=== PATIENT | female | born 1960 | race Caucasian/White ===

== ENCOUNTER 2023-12-03 13:27 | Outpatient (CLI) | payer BC, SELFPAY ==
--- NOTE | 2023-12-03 13:40 | MM_ITS ---
Patient: SARAH RUSH Facility:?[facility] [place] Patient ID:?[id number] Site Patient ID:?[id number]. Site :?[id number] Study:?XRay-Breast Bilateral 3D W/CAD-12/03/2023 2:00:26 PM Ordering Physician:Candice Linares Final Report: BILATERAL SCREENING MAMMOGRAM WITH COMPUTER-AIDED DETECTION AND TOMOSYNTHESIS TECHNIQUE: CC and MLO views were obtained. These mammographic images have been obtained using full-field digital technique. These mammographic images were interpreted with the benefit of computer-aided detection. Breast Tomosynthesis was used in this interpretation. COMPARISON FILM: 08/29/21, 03/28/20, 05/13/17. FINDINGS: There are scattered areas of fibroglandular density IMPRESSION: There is no radiographic evidence for malignancy. ASSESSMENT: BI-RADS Category 1: Negative RECOMMENDATION: Routine screening mammogram in 1 year. A lay language report of this examination will be provided to the patient. Noel Alvarado M.D. Diagnostic Radiologist [email or web address] Transcribed: 12:48 p.mAkua erickson/Dictated by: Noel Alvarado MD @ 12/04/2023 9:56:00 AM Signed by:?Noel Alvarado MD @12/04/2023 12:48:30 PM (Electronic Signature)
== END 2023-12-03 13:28 | disposition home or self-care (01) ==
LOC: MAMMO 13:32
PROVIDERS: PCP Family Medicine; Visit Provider Family Medicine
DX: Z12.31 Encounter for screening mammogram for malignant neoplasm of breast (principal)
CPT/HCPCS: 77063; 77067

== ENCOUNTER 2025-02-02 09:02 | Outpatient (CLI) | payer MEDICARE, BC, SELFPAY ==
--- NOTE | 2025-02-02 09:15 | CRLHL7_ITS ---
For Patients: As a result of the Century Cures Act, medical imaging exams and procedure reports are released immediately into your electronic medical record. You may view this report before your referring provider. If you have questions, please contact your health care provider. INDICATION: BILATERAL SCREENING MAMMOGRAM, ASYMPTOMATC 64 Y/O FEMALE COMPARISON: 12/03/2023, 08/29/2021, 03/28/2020 TECHNIQUE: Digital mammogram in CC and MLO projections including computer-aided detection (CAD) and tomosynthesis. BREAST COMPOSITION: There are scattered areas of fibroglandular density. FINDINGS: No suspicious findings. ASSESSMENT: BI-RADS 1 Negative RECOMMENDATION: Annual screening mammogram. A lay language report of this examination will be provided to the patient. Dictated by: Noel Alvarado MD @ 02/02/2025 10:01:31 (Electronically Signed)
--- OUTSIDE RECORDS SUMMARY | 2025-02-03 00:38 | XMS_ITS | Clinical Summary ---
Author Organization [facility] Address [address] [place] [id number] Care Team Providers Care Schedule Supervisor Name Role Phone Candice Mendez MD Primary Care Provide r Allergies Active Allergy Reactions Criticality Noted Date Comments Sulfamethoxazole-Trimethoprim Rash 2012 Penicillins 01/19/2008 When she was little Medications rosuvastatin (CRESTOR) 5 mg tabletIndications:H yperlipidemia, unspecified hyperlipidemia type Take 1 Tablet (5 mg) by mouth at bedtime. 90 Tablet 3 4 Active acyclovir (ZOVIRAX) 400 mg tabletIndications:H /O cold sores Take 1 Tablet (400 mg) by mouth three times daily. For 5 days. Take at cold sore onset. 45 Tablet 3 4 Active Active Problems Problem Noted Date Diagnosed Date Routine adult health maintenance 07/01/2017 Overview (07/01/2017): Colonoscopy 06/2017 diverticulosis repeat in 10 years H/O cold sores 06/16/2014 Hyperlipidemia 04/10/2011 Mild recurrent major depression 04/10/2011 Tobacco use disorder 04/10/2011 Immunizations Immunization Administration Dates Next Due DT (Age < 7 years) 12/16/2007 Hepatitis A (Adult) 06/16/2014,12/29/2012 Influenza RIV4 (Age 18+ Year s) PRESERV FREE 05/18/2019 Influenza Virus, Unspecified 08/16/2015(Deferred : Patient Refused) Influenza, IIV3 (Age 6-35 mos) 3,05/19/2012,06/03/2011,2009 Influenza, IIV3 (Age >=3 years) 06/14/2014 Influenza, IIV4 06/03/2017,06/04/2016 Influenza, Intradermal, Quad rivalent, Pf 06/03/2017 TD, UNSPECIFIED 11/20/2021 Tdap 05/19/2012 Typhoid (injectable) 12/29/2012 Yellow Fever 12/29/2012 Family History Medical History Relation Name Comments Cancer-prostate Father Hypertension Maternal Grandmother Cancer-breast Mother Hyperlipidemia Mother Hypertension Mother Cancer Paternal Grandfather lymphom a Hypertension Paternal Grandmother Macular degeneration Sister Relation Name Status Comments Father Maternal Grandmother Mother Paternal Grandfather Paternal Grandmother Sister Social History Tobacco Use Types Packs/Day Years Used Date Smoking Tobacco: Former Cigarettes Q uit: 12/03/2015 Smokeless Tobacco: Never Tobacco Cessation:Counseling Given: Yes Alcohol Use Standard Drinks/Week Comments Yes 2 (1 standard drink = 0.6 oz pur e alcohol) 2 per month PHQ-2 Answer Date Recorded PHQ-2 TOTAL SCORE 0 06/13/2022 Social Connections Answer Date Recorded Frequency of Communication with Friends and Fami ly Not on file 08/17/2021 Financial Resource Strain Answer Date R ecorded Difficulty of Paying Living Expenses Not on file 08/17/2021 Difficulty of Paying Living Expenses Not on file 08/17/2021 Comments No Sex and Gender Information Value Date Recorded Sex Assigned at Not on file Legal Sex Female 5:26 AM GLUE MIXER Gender Identity Not on file Sexual Orientation Not on file Obstetrics History Last Filed Vital Signs Vital Sign Reading Time Taken Comments Blood Pressure 124/82 06/13/2022 9:39 AM CDT Pulse 85 06/13/2022 9:39 AM CDT Temperature 36.6 C (97.9 F) 07/23/2020 4:53 PM GLUE MIXER Respiratory Rate - - Oxygen Saturation 96% 06/13/2022 9:39 AM CDT Inhaled Oxygen Concentration - - Weight 68.5 kg (151 lb) 06/13/2022 9:39 AM CDT Height 164.5 cm (5' 4.75) 06/13/2022 9:39 AM CD T Body Mass Index 25.32 06/13/2022 9:39 AM CDT Plan of Treatment Upcoming Encounters Date Type Department Care Team (Late st Contact Info) Description 02/07/2025 8:25 AM CDT [facility] [address] [place] [address] Candice Mendez MD [address] [place] [address] Health Maintenance Due Date Last Done Comments HIV for age 15-65 1974 Pneumococcal series for age 50+ (1 of 1 - PCV) 2009 Zoster (shingles) series for age 50+ (1 of 2) 2009 BMI (ht and wt on same day) for age 18+ 06/13/2023 06/13/2022, 08/19/2019, 06/27/2019, Additional history exists Depression screening for age 12+ 06/13/2023 06/13/2022, 07/23/2020, 08/19/2019, Additional history exists COVID-19 vaccine series ( season) 2024 07/16/2021, 10/27/2020, 10/06/2020 DEXA/DXA scan for age 65+ 2024 Mammogram for age 45-75 12/02/2024 12/03/19 24, 08/29/2021, 03/28/2020, Additional history exists Influenza Vaccine (Season Ended) 2025 05/18/2019, 06/03/2017, 06/03/2017, Additional history exists Lipids for age 45-75 06/13/2027 06/13/2022, 06/01/2018, 06/03/2017, Additional history exists Colonoscopy through age 75 07/01/202707/01, 07/01/2017, 07/01/2017 Tetanus booster 11/21/2031 11/20/2021, 10/2011, 04/10/2011 (Completed outside of [facility]) RSV vaccine for adults or (1 - 1-dose 75+ series) 2034 Tdap Completed 05/19/2012 Hepatitis C screening for age 18-79 Completed 06/26/2014 Hepatitis B series for 19+ Aged Out N o longer eligible based on patient's age to complete this topic Procedures Procedure Name Priority Date/Time Associated Diagnosis Comments SCAN-MAMMOGRAPHY REPORT 12/03/2023 12:00 AM CDT LIPID PANEL W REFLEX MEASURED LDL Routine 06/13/2022 11:00 AM CDT Mixed hyperlipidemia COLONOSCOPY 07/01/2017 8:53 AM GLUE MIXER ANTI HCV Routine 06/26/2014 8:12 AM GLUE MIXER Routine general medical examination at a [facility] care facility from Last 3 Months or Most Recently Relevant to Health Maintenance Results * SCAN-MAMMOGRAPHY REPORT (12/03/2023 12:00 AM CDT) Anatomical Region Laterality Modality Other us Scanner OTHER Final Result * (ABNORMAL) LIPID PANEL W REFLEX MEASURED LDL (06/13/2022 11:00 AM CDT) CHOLESTEROL,TOTAL 290(H) 100 - 199 mg/dL 06/15/2022 8:21 AM CDT [facility] TRIGLYCERIDES 109 <150 mg/dL 06/15/2022 8:21 AM CDT [facility] HDL CHOLESTEROL 53 >40 mg/dL 8:21 AM CDT [facility] NON-HDL CHOLESTEROL 237(H) <145 mg/dl 06/15/2022 8:21 AM CDT [facility] CHOL/HDL RATIO 5.47(H) <4.50 06/15/2022 8:21 AM CDT [facility] LDL CHOLESTEROL 215(H) <=130 mg/dL 06/15/2022 8:21 AM CDT [facility] VLDL CHOLESTEROL 22 <=30 mg/dL 06/15/2022 8:21 AM CDT [facility] PROVIDER ORDERED STATUS RANDOM 06/15/2022 8:21 AM CDT [facility] Blood BLOOD SPECIMEN / Unknown Venipuncture / Unknown 06/13/2022 11:00 AM CDT 06/13/2022 11:01 AM CDT Candice Mendez MD CHEMISTRY Final Result [facility] [address] [place] [address], [place] * COLONOSCOPY (07/01/2017 8:53 AM GLUE MIXER) 07/01/2017 8:53 AM GLUE MIXER Narrative Transcriptions John Moreno MD - 07/01/2017 9:34 AM CST Patient Name: Janeth Toussaint Procedure Date: 07/01/2017 Gender: Female Date of : 1960 Admit Type: Outpatient Procedure: Colonoscopy Proceduralist: John Moreno MD , Radha Arreola (Nurse) Indications/Pre-Op Diagnosis: Screening for colorectal malignant neoplasm, This is the patient's first colonoscopy Medications: Fentanyl 100 micrograms IV, Midazolam 4 mgIV, The level of sedation administered wasmoderate Procedure Description: The patient had risks, benefits and alternatives explained to andgave informed consent. The patient had a stable cardiopulmonary status and judged an adequate candidate for conscious sedation. The [id number]-[id number] was passed through the anus and advanced tothe cecum, identified by appendiceal orifice and ileocecal valve. The colonoscopy was performed without difficulty. The patient toleratedthe procedure well. The quality of the bowel preparation was good. The ileocecal valve, appendiceal orifice, and rectum were photographed. Complications: No immediate complications. Estimated Blood Loss & Specimen: Estimated blood loss: none. Specimen collected - None Findings: The perianal and digital rectal examinations were normal. Many small-mouthed diverticula were found in the sigmoid colon. The exam was otherwise without abnormality on direct and retroflexion views. Impressions/Post-Op Diagnosis: - Diverticulosis in the sigmoid colon. - The examination was otherwise normal on direct and retroflexionviews. - No specimens collected. Recommendation: - Patient has a contact number available for emergencies. The signsand symptoms of potential delayed complications were discussed with the patient. Return to normal activities tomorrow. Written discharge instructions were provided to the patient. - Resume previous diet. - Continue present medications. - Repeat colonoscopy in 10 years for screening purposes. Moderate Sedation: Moderate (conscious) sedation was administered by the endoscopy nurse and supervised by the endoscopist. The following parameters were monitored: oxygen saturation, heart rate, respiratory rate, blood pressure, adequacy of pulmonary ventilation and reponse to care. [facility] and nursing notes for moderate sedation details. Total physician intraservice time was 14 minutes. John Moreno MD 07/01/2017 9:34:31 AM This report has been signed electronically. Note Initiated On: 07/01/2017 8:53 AM Procedure Code(s): --- Professional --- 24261, Colonoscopy, flexible; diagnostic, including collection of specimen(s) bybrushing or washing, when performed (separateprocedure) Diagnosis Code(s): --- Professional --- Z12.11, Encounter for screening formalignant neoplasm of colon K57.30, Diverticulosis of large intestine without perforation or abscess withoutbleeding CPT copyright 2016 [employer]. All rights reserved. The codes documented in this report are preliminary and upon graining machine operator reviewmay be revised to meet current compliance requirements. Scope In: 9:18:42 AM Scope Withdrawal Time 0 hours 8 minutes 19 seconds Scope Out: 9:30:33 AM us John Moreno MD PROCEDURE ORD Final Res ult * ANTI HCV (06/26/2014 8:12 AM GLUE MIXER) HEPATITIS C ANTIBODY Non-Reacti ve Non-Reacti ve 06/26/2014 4:22 PM GLUE MIXER [facility] Blood specimen (specimen) BLOOD SPECIMEN / Unknown Venipuncture / Unknown 06/26/2014 8:12 AM GLUE MIXER 06/26/2014 8:12 AM GLUE MIXER Narrative [facility] - 06/26/2014 4:22 PM GLUE MIXER Antibodies to HCV not detected; does not exclude the possibility of exposure to HCV. us Carmita HUTCHINS SEND OUTS Final Resu lt [facility] [address] [place] [address], [place] from Last 3 Months or Most Recently Relevant to Health Maintenance Insurance [facility] Care Teams Schedule Supervisor Relationship Specialty Start Date End Date [place] [address] PCP - General Family Practice 05/07/17
== END 2025-02-02 09:03 | disposition home or self-care (01) ==
LOC: MAMMO 09:03
PROVIDERS: PCP Family Medicine; Visit Provider Family Medicine
DX: Z12.31 Encounter for screening mammogram for malignant neoplasm of breast (principal)
CPT/HCPCS: 77063; 77067